=== PATIENT | female | born 1950 | race Caucasian/White ===

== ENCOUNTER 2025-01-04 07:00 | Day surgery (SDC) | payer MEDICARE ==
[2025-01-01 11:30] LABS: BASOPHILS # (AUTO) 0.1 X10'3 (0-0.2); BASOPHILS % (AUTO) 1.7 % (0-1); EOSINOPHILS # (AUTO) 0.1 X10'3 (0-0.9); EOSINOPHILS % (AUTO) 1.6 % (0-6); LYMPHOCYTES # (AUTO) 1.9 X10'3 (1.1-4.8); LYMPHOCYTES % (AUTO) 29.9 % (21-51); MEAN CORPUSCULAR HEMOGLOBIN 21.2 PG (27.0-31.0); MEAN CORPUSCULAR HGB CONC 30.7 g/dL (33.0-36.5); MEAN CORPUSCULAR VOLUME 69.3 FL (78-98); MEAN PLATELET VOLUME 6.6 FL (7.4-10.4); MONOCYTES # (AUTO) 0.5 X10'3 (0-0.9); MONOCYTES % (AUTO) 8.8 % (2-12); NEUTROPHILS # (AUTO) 3.6 X10'3 (1.8-7.7); PRE OP HEMATOCRIT 36.4 % (35.0-45.0); PRE OP HEMOGLOBIN 11.2 g/dL (12.0-16.0); PRE OP PLATELET COUNT 396 X10'3 (140-440); PRE OP WHITE BLOOD COUNT 6.3 10'3 (4.8-10.8); RED BLOOD COUNT 5.25 X10'6 (4.20-5.60); RED CELL DISTRIBUTION WIDTH 25.3 % (11.5-14.5)
[2025-01-01 11:51] LABS: ALBUMIN 3.7 G/DL (3.4-5.0); ALBUMIN/GLOBULIN RATIO 0.9 (1.1-1.5); ALKALINE PHOSPHATASE 65 IU/L (46-116); BLOOD UREA NITROGEN 6 MG/DL (7-18); BUN/CREATININE RATIO 11.1 (10.0-20.0); CALCIUM 9.4 MG/DL (8.5-10.1); CHLORIDE 106 MMOL/L (99-107); CREATININE 0.54 MG/DL (0.40-0.90); PRE OP ALT 15 U/L (30-65); PRE OP AST 15 U/L (10-37); PRE OP GLUCOSE 97 MG/DL (70-104); PRE OP POTASSIUM 3.9 MMOL/L (3.4-5.1); TOTAL CARBON DIOXIDE 28.6 MMOL/L (24-32); TOTAL PROTEIN 7.8 G/DL (6.4-8.2); eGFR > 90 ML/MIN
[2025-01-01 11:54] LABS: ANISOCYTOSIS 3+; MICROCYTOSIS 2+; PLATELET ESTIMATE NORMAL
[2025-01-01 11:55] LABS: HYPOCHROMASIA 1+
[2025-01-01 12:03] LABS: PRE OP ANION GAP 5 (8-16); PRE OP BILIRUB, TOTAL 0.3 MG/DL (0.0-1.0); PRE OP SODIUM 140 MMOL/L (135-145)
[~2025-01-04] VITALS: Ht 157.5 cm; Wt 62.0 kg
[~2025-01-04 07:00] MED LIST: ALPR0.252 PO; AMLO5TAB5 PO; LORA10TA7 PO; LOSA-418 PO; PANT40TA54 PO; SENN-267 PO
[2025-01-04 07:10] VITALS: BP 118/68; PULSE 71; RESP 16; TEMP 98.4; O2SAT 96
[2025-01-04] MEDS: famotidine 20mg tablet PO ONE (07:48)
[2025-01-04] MEDS: ringers solution, lacted 1,000 ML IV SCH (07:49)
[2025-01-04] MEDS ORDERED: ondansetron/PF 4mg/2ml inj IV PRN (08:35)
[2025-01-04] MEDS ORDERED: meperidine/PF 100mg/ml syringe IV PRN ×3 (08:35)
[2025-01-04] MEDS ORDERED: proCHLORperazine 10 MG/2 ml inj IV PRN (08:35)
[2025-01-04] MEDS ORDERED: ringers solution, lacted 1,000 ML IV SCH (08:35)
[2025-01-04] MEDS ORDERED: morphine 2 MG/ML inj. syringe IV PRN (08:35)
[2025-01-04] MEDS ORDERED: morphine 4 MG/ML inj SYRINge IV PRN (08:35)
[2025-01-04] MEDS ORDERED: fentaNYL/PF 50MCG/1 ML 2ML syringe ONE (08:42)
[2025-01-04] MEDS ORDERED: midazolam 1 mg/ML 2ml injection ONE (08:42)
[2025-01-04] MEDS ORDERED: propofol inj 20 ML IV ONE (08:42)
[2025-01-04] MEDS ORDERED: sevoflurane 250ml liquid IH ONE (08:44)
[2025-01-04] MEDS ORDERED: ePHEDrine 50MG/ML INJ. ONE (09:20)
[2025-01-04] MEDS ORDERED: sugammadex 200mg/2ml injection IV ONE (09:42)
[2025-01-04 09:53] VITALS: BP 130/70; PULSE 100; RESP 18; O2SAT 98
[2025-01-04 10:00] VITALS: BP 127/62; PULSE 91; RESP 20; O2SAT 99
[2025-01-04 10:10] VITALS: BP 123/62; PULSE 91; RESP 14; O2SAT 93
[2025-01-04 10:20] VITALS: BP 124/67; PULSE 94; RESP 15; O2SAT 95
[2025-01-04 10:33] VITALS: BP 121/63; PULSE 90; RESP 13
== END 2025-01-04 10:33 | disposition home or self-care (01) ==
LOC: PAS 07:00 → EDSEX 09:45 → PAS 10:33
PROVIDERS: ATTEND Internal Medicine Critical Care Medicine
DX: R91.8 Other nonspecific abnormal finding of lung field (principal); J44.9 Chronic obstructive pulmonary disease, unspecified; I10 Essential (primary) hypertension; I48.91 Unspecified atrial fibrillation; K21.9 Gastro-esophageal reflux disease without esophagitis; Z79.899 Other long term (current) drug therapy; Z98.51 Tubal ligation status; Z90.710 Acquired absence of both cervix and uterus; Z98.890 Other specified postprocedural states; Z88.8 Allergy status to other drugs, medicaments and biological substances; Z87.442 Personal history of urinary calculi
CPT/HCPCS: 31624; 31627; 31628; 31653; 36415; 71250; 80053; 82948; 85025; 87015; 87070; 87116; 87206; 88173; 88305; 88341; 88342; 88360; 93005; 94760; A4618; J1100; J2250; J2405; J2704; J3010; J3490; J7120; Z7506; Z7508; Z7512; Z7610; 31622; 31625; 31626; 31654; 85008